=== PATIENT | female | born 1990 | race Two or more races ===

== ENCOUNTER 2022-07-16 15:28 | Emergency (ER) | payer BC, OTHER ==
[~2022-07-16] VITALS: Ht 160 cm; Wt 86.2 kg
[2022-07-16 18:39] VITALS: BP 134/93
[2022-07-16] MEDS ORDERED: PRED20TA2 PO (18:55)
[2022-07-16] MEDS ORDERED: AMOX-277 PO (18:55)
[2022-07-16] MEDS ORDERED: ALBUAER3 IN (18:55)
== END 2022-07-16 19:09 | disposition home or self-care (01) ==
LOC: ER 15:28
DX: J06.9 Acute upper respiratory infection, unspecified (principal); J45.909 Unspecified asthma, uncomplicated

== ENCOUNTER 2022-12-03 06:05 | Emergency (ER) | payer OTHER ==
[~2022-12-03] VITALS: Ht 160 cm; Wt 87.2 kg
[~2022-12-03 06:05] MED LIST: ALBUAER3 IN; AMOX-277 PO; PRED20TA2 PO
[2022-12-03 06:55] VITALS: BP 134/92
[2022-12-03] MEDS ORDERED: PROM1SOL4 PO (08:14)
[2022-12-03] MEDS ORDERED: PRED20TA2 PO (08:15)
== END 2022-12-03 10:11 | disposition home or self-care (01) ==
LOC: ER 06:05
DX: J40 Bronchitis, not specified as acute or chronic (principal); J06.9 Acute upper respiratory infection, unspecified